=== PATIENT | male | born 1980 | race Caucasian/White ===

== ENCOUNTER 2019-04-07 11:47 | Inpatient (IN) | payer OTHER, BC ==
[2019-04-07] MEDS ORDERED: DIPH,PERTUS(ACELL)TETVAC-LF 0.5 ML VIAL IM ONE (11:55)
[2019-04-07] MEDS ORDERED: SODIUM CHLORIDE 0.9% 500 ML 500 ML IV STA (11:55)
[2019-04-07 12:10] LABS: Basophils # (A) 0.1 k/uL (0-0.2); Basophils % (A) 1 %; Eosinophils # (A) 0.1 k/uL (0-0.7); Eosinophils % (A) 1 %; HCT 44.6 % (39.0-53.0); HGB 15.3 gm/dL (13.0-17.5); Lymphocytes # (A) 4.4 k/uL (1.0-4.8); Lymphocytes % (A) 44 %; MCHC 34.4 g/dL (31.0-37.0); MCV 96.1 fL (80.0-100.0); Mean Platelet Volume 6.9; Monocytes # (A) 0.6 k/uL (0-1.0); Monocytes % (A) 6 %; Neutrophils # (A) 4.4 k/uL (1.3-7.7); Neutrophils % (A) 45 %; Platelet Count 285 k/uL (150-450); RBC 4.64 m/uL (4.30-5.90); RDW 11.7 % (11.5-15.5); WBC 9.9 k/uL (3.8-10.6)
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
[2019-04-07 12:19] LABS: INR 0.9 (<1.2)
[2019-04-07 12:20] LABS: Partial Thromboplastin Time 24.4 sec (22.0-30.0); Prothrombin Time 10.1 sec (9.0-12.0)
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
[2019-04-07 12:23] LABS: ALT 40 U/L (21-72); AST 31 U/L (17-59); African American GFR (CKD) >90 (>60 ml/min/1.73 sqM); Albumin 3.9 g/dL (3.5-5.0); Alkaline Phosphatase 75 U/L (38-126); Amylase 47 U/L (30-110); Anion Gap 13 mmol/L; Blood Urea Nitrogen 10 mg/dL (9-20); Carbon Dioxide 20 mmol/L (22-30); Chloride 106 mmol/L (98-107); Glucose 158 mg/dL (74-99); Non-African American GFR(CKD) >90 (>60 ml/min/1.73 sqM); Sodium 139 mmol/L (137-145); Total Bilirubin 0.6 mg/dL (0.2-1.3); Total Protein 6.7 g/dL (6.3-8.2)
[2019-04-07 12:27] LABS: Potassium 3.6 mmol/L (3.5-5.1)
[2019-04-07 12:28] LABS: Alcohol 117 mg/dL
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
[2019-04-07 12:53] LABS: Creatine Kinase 86 U/L (55-170)
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
[2019-04-07 13:05] LABS: Creatine Kinase MB 0.7 ng/mL (0.0-2.4); Troponin I <0.012 ng/mL (0.000-0.034)
[2019-04-07] MEDS ORDERED: SODIUM CHLORIDE 0.9% 1,000 ML IV ONE (13:07)
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
[2019-04-07] MEDS ORDERED: LIDOCAINE 1% INJ 10MG/ML (20 ML MDV) SQ STA (13:27)
[2019-04-07] MEDS ORDERED: MORPHINE SULFATE 2 MG/ML SYRINGE IVP STA (13:41)
[2019-04-07] MEDS ORDERED: MORPHINE SULFATE 2 MG/ML SYRINGE IVP PRN (13:45)
[2019-04-07] MEDS ORDERED: ONDANSETRON 4 MG/2 ML VIAL IVP STA (13:52)
[2019-04-07] MEDS ORDERED: LORazepam 2 MG/ML INJ IV STA (13:53)
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
[2019-04-07 14:30] LABS: Amphetamine Screen,Urine Not Detected (NotDetected); Barbiturate Screen,Urine Not Detected (NotDetected); Benzodiazepines Screen,Urine Not Detected (NotDetected); Cocaine Screen,Urine Not Detected (NotDetected); Methadone Screen, Urine Not Detected (NotDetected); Opiate Screen,Urine Not Detected (NotDetected); Oxycodone Screen, Urine Not Detected (NotDetected); Phencyclidine Screen,Urine Not Detected (NotDetected); Tricyclic Antidepressant,Urine Not Detected (NotDetected); Urn Cannabinoid Scrn Detected (NotDetected)
[2019-04-07 14:32] LABS: Appearance,Urine Clear (Clear); Bilirubin,Urine Negative (Negative); Blood,Urine Moderate (Negative); Color,Urine Light Yellow; Glucose,Urine (UA) Negative (Negative); Ketones,Urine Negative (Negative); Leukocyte Esterase,Urine Negative (Negative); Nitrite,Urine Negative (Negative); Protein,Urine Negative (Negative); RBC,Urine 1 /hpf (0-5); Specific Gravity,Urine 1.013 (1.001-1.035); Urobilinogen,Urine <2.0 mg/dL (<2.0); WBC,Urine <1 /hpf (0-5)
[2019-04-07] MEDS ORDERED: HYDROcodone/APAP 5-325MG 1 EACH TAB PO PRN (18:13)
[2019-04-07] MEDS ORDERED: ACETAMINOPHEN TAB 325 MG TAB PO PRN (18:15)
[2019-04-07] MEDS: HYDROcodone/APAP 5-325MG 1 EACH TAB PO PRN ×2 (18:20→23:22)
[2019-04-07] MEDS: HYDROmorphone 0.5 MG/0.5 ML SYRINGE IVP PRN (21:33)
[2019-04-08] MEDS: HYDROmorphone 0.5 MG/0.5 ML SYRINGE IVP PRN ×3 (01:45→09:36)
[2019-04-08] MEDS: HYDROcodone/APAP 5-325MG 1 EACH TAB PO PRN ×3 (06:42→18:42)
[2019-04-08 08:23] LABS: Basophils % (A) 0 %; Eosinophils % (A) 0 %; HCT 40.5 % (39.0-53.0); HGB 14.1 gm/dL (13.0-17.5); Lymphocytes # (A) 2.1 k/uL (1.0-4.8); Lymphocytes % (A) 15 %; MCH 32.7 pg (25.0-35.0); MCHC 34.7 g/dL (31.0-37.0); MCV 94.3 fL (80.0-100.0); Mean Platelet Volume 6.9; Monocytes % (A) 7 %; Neutrophils # (A) 10.7 k/uL (1.3-7.7); Neutrophils % (A) 76 %; Platelet Count 225 k/uL (150-450); RDW 11.7 % (11.5-15.5)
[2019-04-08 08:24] LABS: ALT 37 U/L (21-72); AST 21 U/L (17-59); African American GFR (CKD) >90 (>60 ml/min/1.73 sqM); Albumin 3.5 g/dL (3.5-5.0); Alkaline Phosphatase 77 U/L (38-126); Anion Gap 8 mmol/L; Blood Urea Nitrogen 5 mg/dL (9-20); Calcium 8.7 mg/dL (8.4-10.2); Carbon Dioxide 24 mmol/L (22-30); Chloride 105 mmol/L (98-107); Glucose 114 mg/dL (74-99); Non-African American GFR(CKD) >90 (>60 ml/min/1.73 sqM); Potassium 3.9 mmol/L (3.5-5.1); Sodium 137 mmol/L (137-145); Total Bilirubin 1.2 mg/dL (0.2-1.3); Total Protein 6.2 g/dL (6.3-8.2)
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
[2019-04-08] MEDS: KETOROLAC 30 MG/ML 1 ML VIAL IVP SCH ×2 (12:18→17:04)
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
[2019-04-09] MEDS: KETOROLAC 30 MG/ML 1 ML VIAL IVP SCH ×3 (01:06→11:38)
[2019-04-09 06:58] VITALS: BP 116/76; PULSE 72; RESP 17; TEMP 98.8
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
[2019-04-09] MEDS: HYDROcodone/APAP 5-325MG 1 EACH TAB PO PRN (14:12)
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
== END 2019-04-09 14:17 | disposition home or self-care (01) | DRG 563 ==
LOC: EC 11:47 → 4SSUR 13:07 → OBSVTOIN 04-08 13:15
PROVIDERS: ADMIT Surgery; ATTEND Surgery
PROC: 2W3DX1Z Immobilization of Left Lower Arm using Splint (ICD-10-PCS; principal; 2019-04-07)
PROC: 0CQ7XZZ Repair Tongue, External Approach (ICD-10-PCS; 2019-04-07)
PROC: 0CQ1XZZ Repair Lower Lip, External Approach (ICD-10-PCS; 2019-04-07)
DX: S82.044A Nondisplaced comminuted fracture of right patella, initial encounter for closed fracture (principal); S06.0X1A Concussion with loss of consciousness of 30 minutes or less, initial encounter; S52.612A Displaced fracture of left ulna styloid process, initial encounter for closed fracture; S52.572A Other intraarticular fracture of lower end of left radius, initial encounter for closed fracture; S22.31XA Fracture of one rib, right side, initial encounter for closed fracture; R40.2142 Coma scale, eyes open, spontaneous, at arrival to emergency department; R40.2362 Coma scale, best motor response, obeys commands, at arrival to emergency department; R40.2252 Coma scale, best verbal response, oriented, at arrival to emergency department; F10.129 Alcohol abuse with intoxication, unspecified; S01.511A Laceration without foreign body of lip, initial encounter; S00.81XA Abrasion of other part of head, initial encounter; S01.512A Laceration without foreign body of oral cavity, initial encounter; M25.572 Pain in left ankle and joints of left foot; M54.5 Low back pain; R31.29 Other microscopic hematuria; Y90.5 Blood alcohol level of 100-119 mg/100 ml; F17.210 Nicotine dependence, cigarettes, uncomplicated; Z71.6 Tobacco abuse counseling; Z98.52 Vasectomy status; V22.4XXA Motorcycle driver injured in collision with two- or three-wheeled motor vehicle in traffic accident, initial encounter; Y92.414 Local residential or business street as the place of occurrence of the external cause
CPT/HCPCS: 12013; 29125; 36415; 41250; 70450; 71045; 71046; 71260; 72125; 72170; 74177; 80053; 80306; 80320; 81001; 82150; 82550; 82553; 83605; 83690; 84484; 85025; 85610; 85730; 86850; 86900; 86901; 90471; 90715; 93005; 96360; 96361; 96374; 96375; 99291